=== PATIENT | male | born 1980 | race Caucasian/White ===

== ENCOUNTER 2016-07-02 15:23 | Emergency (ER) | payer BC, OTHER ==
[~2016-07-02] VITALS: Ht 198.1 cm; Wt 108.9 kg
[~2016-07-02 15:23] MED LIST: ADVIL,MOTRIN,R200 MG PO; AMOXIL500 M1 PO; ANTIVERT25 MG PO; AUGMENTIN 875-875 MG PO; B-1100 MG PO; BACTRIM DS 8001 TA1 PO; CATAPRES0.1 MG PO; CEPHALEXIN500 M1 PO; CLARITIN-D 10 M1 T21 PO; CLARITIN-D 12 H1 TAB PO; CLARITIN10 MG PO; CORTISPORIN SUS10 ML OT; DAYPRO600 M1 PO; FLEXERIL10 MG PO; HYDROCODONE BIT1 T11 PO; KEFLEX500 MG PO; LIDEX 0.05% CRE15 GM T; LISINOPRIL-HYDR1 TA1 PO; MEDROL DOSEPAK4 MG PO; MOTRIN800 MG PO; Motrin,Rufen800 MG PO; NAPROSYN500 MG PO; NATURE'S BLEND F1 MG PO; PREDNICOT20 MG PO; PREDNISONE10 MG PO; PREDNISONE20 M1 PO; ROBITUSSIN DM 105 ML PO; SKELAXIN800 MG PO; SUBOXONE 8 MG-21 TA2 SL; THERAGRAN1 TA2 PO; TRAMADOL HCL50 MG PO; VENTOLIN H0.09 MG/AC INH; VIBRAMYCIN100 MG PO; VICODIN 500 MG-1 TAB PO; VISTARIL25 M1 PO; VITAMIN D50000 I3 PO; XANAX0.25 MG PO; XANAX0.5 MG PO; XANAX1 MG PO
[2016-07-02] MEDS ORDERED: VISTARIL25 MG PO (15:41)
[2016-07-02] MEDS ORDERED: NAPROSYN500 MG PO (15:41)
== END 2016-07-02 16:29 | disposition home or self-care (01) ==
LOC: ED 15:23
DX: M25.511 Pain in right shoulder (principal); R03.0 Elevated blood-pressure reading, without diagnosis of hypertension; F41.9 Anxiety disorder, unspecified; Z79.899 Other long term (current) drug therapy

== ENCOUNTER 2016-09-23 14:48 | Emergency (ER) | payer BC, OTHER ==
[~2016-09-23] VITALS: Ht 198.1 cm; Wt 108.9 kg
[~2016-09-23 14:48] MED LIST changes: +VISTARIL25 MG PO
[2016-09-23 15:50] LABS: BASO # 0.1 10*3/uL (0.0-0.1); BASO % 0.7 % (0.0-1.0); EOS # 0.6 10*3/uL (0.0-0.4); EOS % 9.3 % (1.0-4.0); HEMATOCRIT 41.6 % (42.0-52.0); HEMOGLOBIN 14.4 g/dl (14.0-18.0); LYMPH % 28.8 % (27.0-41.0); MEAN CORPUSCULAR HGB 31.5 pg (27.0-31.0); MEAN CORPUSCULAR HGB CONC 34.6 g/dl (33.0-37.0); MEAN PLATELET VOLUME 10.1 fl (9.6-12.3); MONO # 0.5 10*3/uL (0.1-1.0); MONO % 7.8 % (3.0-9.0); NEUT # 3.6 10*3/uL (2.3-7.9); NEUT % 53.3 % (47.0-73.0); PLATELET COUNT AUTOMATED 288 10*3/uL (130-400); RED BLOOD COUNT 4.57 10*6/uL (4.50-5.90); RED CELL DISTRI WIDTH 12.1 % (0-14.5); WHITE BLOOD COUNT 6.8 10*3/uL (4.8-10.8)
[2016-09-23 16:06] LABS: ALBUMIN 4.6 gm/dl (3.1-4.5); ALKALINE PHOSPHATASE 70 U/L (45-117); BILIRUBIN, TOTAL 0.8 mg/dl (0.2-1.0); BUN 20 mg/dl (7-24); CARBON DIOXIDE 30 mmol/L (21-32); CHLORIDE 97 mmol/L (98-107); EST GLOM FILT AFRICAN AMERICAN > 60 ml/min; GLUCOSE 102 mg/dL (65-99); SGOT/AST 28 IU/L (3-35); SGPT/ALT 28 U/L (12-78); SODIUM 137 mmol/L (136-145); TOTAL PROTEIN 8.1 gm/dL (6.4-8.2)
[2016-09-23] MEDS ORDERED: ZOFRAN ODT4 MG SL (16:31)
[2016-09-23] MEDS ORDERED: DOXYCYCLINE100 M3 PO (16:31)
[2016-09-23] MEDS ORDERED: TOPCARE OMEPRAZ20 MG PO (16:31)
== END 2016-09-23 17:00 | disposition home or self-care (01) ==
LOC: ED 14:48
PROVIDERS: Registered Nurse
DX: S20.361A Insect bite (nonvenomous) of right front wall of thorax, initial encounter (principal); K21.9 Gastro-esophageal reflux disease without esophagitis; I10 Essential (primary) hypertension; Z79.899 Other long term (current) drug therapy; W57.XXXA Bitten or stung by nonvenomous insect and other nonvenomous arthropods, initial encounter; Y93.9 Activity, unspecified; Y92.9 Unspecified place or not applicable; Y99.9 Unspecified external cause status

== ENCOUNTER 2017-01-11 13:55 | Emergency (ER) | payer BC, OTHER ==
[~2017-01-11] VITALS: Ht 198.1 cm; Wt 108.9 kg
[~2017-01-11 13:55] MED LIST changes: +DOXYCYCLINE100 M3 PO; +TOPCARE OMEPRAZ20 MG PO; +ZOFRAN ODT4 MG SL
[2017-01-11 14:46] LABS: BASO % 0.3 % (0.0-1.0); EOS % 0.7 % (1.0-4.0); HEMATOCRIT 42.5 % (42.0-52.0); HEMOGLOBIN 14.4 g/dl (14.0-18.0); LYMPH # 1.1 10*3/uL (1.3-4.4); LYMPH % 18.3 % (27.0-41.0); MEAN CELL VOLUME 91.4 fl (80.0-94.0); MEAN CORPUSCULAR HGB CONC 33.9 g/dl (33.0-37.0); MEAN PLATELET VOLUME 10.2 fl (9.6-12.3); MONO # 0.3 10*3/uL (0.1-1.0); MONO % 5.9 % (3.0-9.0); NEUT # 4.3 10*3/uL (2.3-7.9); NEUT % 74.6 % (47.0-73.0); PLATELET COUNT AUTOMATED 282 10*3/uL (130-400); RED BLOOD COUNT 4.65 10*6/uL (4.50-5.90); RED CELL DISTRI WIDTH 12.2 % (0-14.5); WHITE BLOOD COUNT 5.8 10*3/uL (4.8-10.8)
[2017-01-11 15:02] LABS: ALBUMIN 4.5 gm/dl (3.1-4.5); ALKALINE PHOSPHATASE 70 U/L (45-117); BUN 17 mg/dl (7-24); CHLORIDE 96 mmol/L (98-107); POTASSIUM 4.2 mmol/L (3.5-5.1); SGOT/AST 24 IU/L (3-35); SGPT/ALT 26 U/L (12-78); SODIUM 136 mmol/L (136-145); TOTAL PROTEIN 7.9 gm/dL (6.4-8.2)
[2017-01-11] MEDS ORDERED: AMOXICILLIN500 M2 PO (15:27)
[2017-01-11] MEDS ORDERED: ZOFRAN ODT4 MG SL (15:27)
== END 2017-01-11 15:58 | disposition home or self-care (01) ==
LOC: ED 13:55
PROVIDERS: Nurse Practitioner Family
DX: F41.9 Anxiety disorder, unspecified (principal); K08.89 Other specified disorders of teeth and supporting structures; B34.9 Viral infection, unspecified; Z79.899 Other long term (current) drug therapy

== ENCOUNTER 2018-01-30 14:51 | Emergency (ER) | payer BC ==
[~2018-01-30] VITALS: Ht 198.1 cm; Wt 108.9 kg
[~2018-01-30 14:51] MED LIST changes: +AMOXICILLIN500 M2 PO
[2018-01-30] MEDS ORDERED: PROVENTIL HFA6.7 GM INH (16:52)
[2018-01-30] MEDS ORDERED: PREDNISONE20 M1 PO (16:52)
[2018-01-30] MEDS ORDERED: TESSALON PERLE100 M1 PO (16:52)
== END 2018-01-30 17:11 | disposition home or self-care (01) ==
LOC: ED 14:51
DX: J40 Bronchitis, not specified as acute or chronic (principal); Z79.899 Other long term (current) drug therapy

== ENCOUNTER 2018-02-19 11:06 | Emergency (ER) | payer BC ==
[~2018-02-19] VITALS: Ht 198.1 cm; Wt 108.9 kg
[~2018-02-19 11:06] MED LIST changes: +PROVENTIL HFA6.7 GM INH; +TESSALON PERLE100 M1 PO
[2018-02-19] MEDS ORDERED: PREDNISOLON5 MG/5 ML PO (13:35)
[2018-02-19] MEDS ORDERED: VIBRAMYCIN100 MG PO (13:42)
== END 2018-02-19 14:08 | disposition home or self-care (01) ==
LOC: ED 11:06
DX: J40 Bronchitis, not specified as acute or chronic (principal); K21.9 Gastro-esophageal reflux disease without esophagitis; I10 Essential (primary) hypertension; Z79.899 Other long term (current) drug therapy

== ENCOUNTER 2018-03-28 09:45 | Emergency (ER) | payer BC ==
[~2018-03-28] VITALS: Ht 198.1 cm; Wt 108.9 kg
[~2018-03-28 09:45] MED LIST changes: +PREDNISOLON5 MG/5 ML PO
[2018-03-28 10:52] LABS: HEMATOCRIT 43.8 % (42.0-52.0); HEMOGLOBIN 14.7 g/dl (14.0-18.0); MEAN CELL VOLUME 94.4 fl (80.0-94.0); MEAN CORPUSCULAR HGB 31.7 pg (27.0-31.0); MEAN CORPUSCULAR HGB CONC 33.6 g/dl (33.0-37.0); MEAN PLATELET VOLUME 10.3 fl (9.6-12.3); PLATELET COUNT AUTOMATED 291 10*3/uL (130-400); RED BLOOD COUNT 4.64 10*6/uL (4.50-5.90); RED CELL DISTRI WIDTH 12.2 % (0-14.5); WHITE BLOOD COUNT 8.2 10*3/uL (4.8-10.8)
[2018-03-28 11:08] LABS: ALBUMIN 4.4 gm/dl (3.1-4.5); ALKALINE PHOSPHATASE 66 U/L (45-117); BUN 18 mg/dl (7-24); CHLORIDE 103 mmol/L (98-107); CREATININE 1.15 mg/dL (0.70-1.30); POTASSIUM 4.8 mmol/L (3.5-5.1); SGOT/AST 22 IU/L (3-35); SGPT/ALT 24 U/L (12-78); SODIUM 139 mmol/L (136-145); TOTAL PROTEIN 7.4 gm/dL (6.4-8.2)
[2018-03-28 11:15] LABS: BASOPHILS 1 % (0-1); PLATELET SUFFICIENCY NORMAL (NORMAL); TOTAL CELLS COUNTED 100 #CELLS
[2018-03-28] MEDS ORDERED: FLONASE ALLERG9.9 ML NAS ×2 (14:54→15:10)
[2018-03-28] MEDS ORDERED: LEVOFLOXACIN500 MG PO ×2 (14:54→15:10)
[2018-03-28] MEDS ORDERED: PREDNISONE10 MG PO ×2 (14:54→15:10)
== END 2018-03-28 14:57 | disposition home or self-care (01) ==
LOC: ED 09:45
PROVIDERS: Nurse Practitioner Family
DX: J20.9 Acute bronchitis, unspecified (principal); J01.90 Acute sinusitis, unspecified; Z88.8 Allergy status to other drugs, medicaments and biological substances; Z79.899 Other long term (current) drug therapy; Z79.2 Long term (current) use of antibiotics

== ENCOUNTER 2018-08-22 13:29 | Emergency (ER) | payer SELFPAY ==
[~2018-08-22] VITALS: Wt 104.3 kg
[~2018-08-22 13:29] MED LIST changes: +COMBIVENT RESPIM4 GM INH; +FLONASE ALLERG9.9 ML NAS; +LEVAQUIN750 M1 PO; +LEVOFLOXACIN500 MG PO; +PREDNISONE50 MG PO
[2018-08-22] MEDS ORDERED: PROVENTIL HFA6.7 GM INH (14:27)
[2018-08-22] MEDS ORDERED: VENTOLIN 02.5 MG/3 M INH (14:27)
[2018-08-22] MEDS ORDERED: PREDNISONE10 MG PO (14:27)
[2018-08-22] MEDS ORDERED: FLOVENT HFA10.6 GM INH (15:02)
[2018-09-25] MEDS ORDERED: ZESTORETIC 20-1 EACH PO (16:39)
[2018-09-27] MEDS ORDERED: MUCINEX ER600 MG PO (10:58)
[2018-09-27] MEDS ORDERED: DOXYCYCLINE100 M3 PO (10:58)
[2018-09-27] MEDS ORDERED: FLONASE ALLERG9.9 ML NAS (10:58)
[2018-09-27] MEDS ORDERED: PREDNISONE10 MG PO (10:58)
[2018-09-27] MEDS ORDERED: PROVENTIL HFA6.7 GM INH (10:58)
== END 2018-08-22 15:00 | disposition home or self-care (01) ==
LOC: ED 13:29
DX: J45.909 Unspecified asthma, uncomplicated (principal); K21.9 Gastro-esophageal reflux disease without esophagitis; Z88.8 Allergy status to other drugs, medicaments and biological substances

== ENCOUNTER 2018-09-21 18:42 | Emergency (ER) | payer SELFPAY ==
[~2018-09-21] VITALS: Ht 198.1 cm; Wt 106.6 kg
[~2018-09-21 18:42] MED LIST changes: +FLOVENT HFA10.6 GM INH; +VENTOLIN 02.5 MG/3 M INH
[2018-09-21 19:52] LABS: HEMATOCRIT 36.6 % (42.0-52.0); HEMOGLOBIN 12.1 g/dl (14.0-18.0); MEAN CELL VOLUME 95.3 fl (80.0-94.0); MEAN CORPUSCULAR HGB 31.5 pg (27.0-31.0); MEAN CORPUSCULAR HGB CONC 33.1 g/dl (33.0-37.0); MEAN PLATELET VOLUME 10.3 fl (9.6-12.3); PLATELET COUNT AUTOMATED 254 10*3/uL (130-400); RED BLOOD COUNT 3.84 10*6/uL (4.50-5.90); RED CELL DISTRI WIDTH 12.4 % (0-14.5); WHITE BLOOD COUNT 10.8 10*3/uL (4.8-10.8)
[2018-09-21 20:07] LABS: ALBUMIN 4.2 gm/dl (3.1-4.5); ALKALINE PHOSPHATASE 82 U/L (45-117); BUN 13 mg/dl (7-24); CHLORIDE 102 mmol/L (98-107); CREATININE 1.16 mg/dL (0.70-1.30); POTASSIUM 3.5 mmol/L (3.5-5.1); SGOT/AST 35 IU/L (3-35); SGPT/ALT 30 U/L (12-78); SODIUM 138 mmol/L (136-145); TOTAL PROTEIN 7.1 gm/dL (6.4-8.2)
[2018-09-21 20:21] LABS: BASOPHILS 1 % (0-1); PLATELET SUFFICIENCY NORMAL (NORMAL); TOTAL CELLS COUNTED 100 #CELLS
[2018-09-21] MEDS ORDERED: ZITHROMAX250 MG PO (21:26)
[2018-09-21] MEDS ORDERED: PREDNISONE10 MG PO (21:26)
[2018-09-25] MEDS ORDERED: ZESTORETIC 20-1 EACH PO (16:39)
[2018-09-27] MEDS ORDERED: PROVENTIL HFA6.7 GM INH (10:58)
[2018-09-27] MEDS ORDERED: DOXYCYCLINE100 M3 PO (10:58)
[2018-09-27] MEDS ORDERED: MUCINEX ER600 MG PO (10:58)
[2018-09-27] MEDS ORDERED: FLONASE ALLERG9.9 ML NAS (10:58)
[2018-09-27] MEDS ORDERED: PREDNISONE10 MG PO (10:58)
== END 2018-09-21 21:28 | disposition home or self-care (01) ==
LOC: ED 18:42
PROVIDERS: Physician Assistant
DX: J45.909 Unspecified asthma, uncomplicated (principal); R42 Dizziness and giddiness; Z88.8 Allergy status to other drugs, medicaments and biological substances; Z79.899 Other long term (current) drug therapy; Z79.2 Long term (current) use of antibiotics

== ENCOUNTER 2019-01-04 19:10 | Inpatient (IN) | payer BC ==
[~2019-01-04] VITALS: Ht 198.1 cm; Wt 96.2 kg
--- NOTE | ~2019-01-04 | PROC NOTE ---
[place], [place] PROCEDURE NOTE [id number] UN[facility] #: [id number] ROOM: 502 DOCTOR: SYD UP MD,ALICJA BIRTHDATE: [birth year] DOS: 01/06/2019 PROCEDURE: Fiberoptic bronchoscopy. PREOPERATIVE DIAGNOSIS: The patient is with ground glass opacity mainly in the upper lungs, greater on the left than the right upper lobe. POSTOPERATIVE DIAGNOSES: The patient is the same and a small amount of secretion present in endobronchial tree, which was also checked an outpatient and bronchial wash from the endobronchial subsegments. BAL specimen was obtained from the left upper lobe as well. COMPLICATIONS: None. ANESTHESIA: Procedure completed under general anesthesia. PROCEDURE DESCRIPTION: The patient was brought to the OR and placed in supine position. Conscious sedation administered by the Anesthesia Department. After achieving proper sedation, airway introduced into the mouth. Bronchoscope advanced to airway into the laryngeal area. Epiglottis and vocal cords were seen as the patient has LMA used for the general anesthesia administration. The bronchoscope was advanced to the vocal cord, moving symmetric movements and in the tracheal lumen noted small amount of mucopurulent secretions suctioned out to the janis level. The secretion present in the main proximal bronchi right and the left main stem bronchi as well. Secretions suctioned out. The secretion was collected from the endobronchial subsegments bilaterally, sent for cultures. BAL specimen was obtained from the left upper lobe, sent for cell differential as well as for the cultures as well and cytology. Procedure well tolerated without any complications. No complications noted after the procedure. ALICJA VELARDE MD CM:PROCNOTE:PROCEDURE NOTE [id number] ALICJA UP MD
--- NOTE | ~2019-01-04 | CON ---
[place], [place] REPORT OF CONSULTATION NAME: OPAL MCMANUS [facility] #: [id number] UNIT #: [id number] ROOM: 502 DOCTOR: ALICJA CASE MD BIRTHDATE: [birth year] DOS: 01/05/2019 PULMONARY CONSULTATION, EVALUATION AND MANAGEMENT REASON FOR CONSULTATION: For assessment of the acute pneumonia and other ongoing respiratory symptoms. HISTORY OF PRESENT ILLNESS: This is a 38-year-old white male patient who was admitted to the hospital under hospitalist service on 01/05/2019. The patient has been assessed in the Emergency Room with ongoing symptom of productive cough intermittently for 3 weeks. The symptoms of shortness of breath have been also noted worsened. The patient has been treated with corticosteroids as tapering steroids as well as amoxicillin. The patient stated symptoms have not worsened. He has a toenail infection that seems to be better taking amoxicillin, but not reported any improvement in respiratory symptom. He came into the hospital has a CT scan of the chest done and that shows pneumonia, requiring hospitalization. The patient has been currently reported symptoms of cough, which were noted essentially without any sputum expectoration. He denies symptoms of chest pain. REVIEW OF SYSTEMS: CONSTITUTIONAL SYMPTOMS: Fatigue and tiredness noted without any symptoms of fever or chills. EYES: Denies any burning, redness, or tenderness. EARS, NOSE, THROAT SYMPTOMS: Denies sore throat, hoarseness, otalgia, postnasal drainage or epistaxis. CARDIOVASCULAR: Denies angina pain, edema, or pain of the lower extremities. GASTROINTESTINAL: Denies dysphagia, nausea, vomiting, diarrhea, abdominal pain, hematemesis, melena, or hematochezia. SKIN: Denies abnormal lesions or rashes. CENTRAL NERVOUS SYSTEM: The patient denies dizziness, headache, diplopia, or syncopal episodes. Remaining systems were reviewed, they were noted all negative. PAST MEDICAL HISTORY: Known to me during his last hospitalization was treated on 09/27/2018, at that time was noted with acute tracheobronchitis. There has not been any pneumonia noted at that time with my assessment. The patient does not have any other abnormalities. The patient had been treated except essential hypertension. SOCIAL HISTORY: The patient lives at home. Denies any history of tobacco, alcohol or illicit drug use. 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 He is single and has 2 children. PAST SURGICAL HISTORY: None. FAMILY HISTORY: The patient's father at age of 43 years with complication of alcoholic liver cirrhosis. Mother at age 42 years with complication of leukemia. [place], [place] REPORT OF CONSULTATION NAME: OPAL MCMANUS UNIT #: [id number] ROOM: 502 DOCTOR: ALICJA CASE MD BIRTHDATE: [birth year] CURRENT MEDICATIONS: Administered were noted as hydrochlorothiazide, lisinopril, Flonase, Mucinex, loratadine, Solu-Medrol 40 mg q.8. hours, DuoNeb q. 4 hours, intravenous Levaquin, vancomycin and Zosyn. DRUG ALLERGIES: Noted as ROBITUSSIN causing anxiety. PHYSICAL EXAMINATION: GENERAL: A 38-year-old male patient who has been noted currently awake and alert without any distress. Height of 6 feet 6 inches, weight of 212 pounds, BMI 24. VITAL SIGNS: Normal temperature, respiratory rate 17-20, heart rate of 92-84, blood pressure 129/65-130/95. Pulse ox saturation on room air. GENERAL: Noted 90-97% saturation recorded. HEENT: Shows head was atraumatic. Eyes nonicterus. NECK: Supple. CARDIOVASCULAR: S1, S2 is audible. LUNGS: Noted with decreased breath sounds with expiratory wheezing, no crackles. ABDOMEN: Soft, flat, and nontender. Bowel sounds present. EXTREMITIES: Noted without any acute edema. MUSCULOSKELETAL: Without any acute deformities. CENTRAL NERVOUS SYSTEM: Cranial nerves 2-12 intact. LABORATORY DATA: CBC that was done yesterday, WBC count 8.5, hemoglobin 13.6, platelet count normal, 17.8% eosinophils. CMP that was done on 01/04/2019, noted BUN 26, creatinine was normal. Sodium of 135. CBC that was done on 01/05/2019, WBC count 5.7, hemoglobin 12.9, platelet counts were normal. CMP with normal BUN and creatinine. Chest x-ray that was done on the current admission review was noted without any acute visible pulmonary infiltration. CT scan of the chest that was done on 01/04/2019 was reviewed in detail personally from the PACS images. It shows patchy area and ground glass opacity noted in the upper lung bilaterally of different areas. The mid and lower portion of the lung noted clear of any acute infiltration. IMPRESSION: The patient who has been currently admitted to the hospital appeared to have acute exacerbation of bronchial asthma, severe eosinophilia, recurrent patchy infiltration. Differential diagnoses would be considered as noninfectious etiology of current pulmonary infiltration as acute hypersensitivity pneumonitis with other differential to be considered bronchopulmonary allergic mycosis. The patient does work in the environment was exposed to the dust in damp environment possibility of mold inhalation cannot be completely excluded. PLAN OF MANAGEMENT: The patient has been already getting corticosteroids that will be continued on current dose. Workup to be completed for the bronchopulmonary aspergillosis, mycosis. He will be needing IgE level as well as IgE patient with Aspergillus species as well. Bronchodilators to be continued. Consider doing a bronchoscopy as well and the BAL specimen to exclude as other causes. Current ground glass opacities of the lung and also to [place], [place] REPORT OF CONSULTATION NAME: MARIETTAOPAL Tsering UNIT #: [id number] ROOM: [facility] DOCTOR: ALICJA CASE MD BIRTHDATE: [birth year] exclude bacterial infection. Continue empirical use of the antibiotic at this time certainly would not require any broad spectrum intravenous antibiotics until confirmation of a bacterial infection would occur. Also ordered for the nasal washing for the viral assessment. Thanks for allowing me to participate in the care of this patient. ALICJA VELARDE MD CM:CONSTR:REPORT OF CONSULTATION 1540 01/25/19 0942 interface
--- NOTE | ~2019-01-04 | PR ---
[place], [place] PROGRESS NOTE NAME: OPAL MCMANUS UNIT #: [id number] ROOM: 502 DOCTOR: ALICJA CASE MD BIRTHDATE: [birth year] DOS: 01/07/2019 SUBJECTIVE: He has a bronchoscopy done yesterday successfully without any difficulty or problem noted with continued reduction and improvement in the symptoms of wheezing and others. Denies symptoms of fever, chills or hemoptysis. OBJECTIVE: VITAL SIGNS: Normal temperature, respiratory rate 18, heart rate 98, blood pressure 115/55 were recorded. Pulse oxygen saturation recorded at rest on room air 96% saturation. HEENT: Head was atraumatic. Eyes nonicterus. NECK: Supple. CARDIOVASCULAR: S1, S2 is audible. LUNGS: No wheeze or crackles today. ABDOMEN: Soft, nontender. Bowel sounds present. EXTREMITIES: No new change. LABORATORY DATA: Culture bronchial washing noted normal emil preliminary, final culture results were pending. The BAL specimen that was done 01/06/2019 noted predominance of eosinophils at 54%. The cultures of the BAL and bronchial washing showing normal emil preliminary. 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 The possible consideration of the current problems resulting from his work exposure and inhalation to mold or other fungal infection resulting in allergic pulmonary disease could be considered very likely. PLAN OF TREATMENT: The patient could be discharged on prednisone 40 mg daily. Outpatient followup set up in a week before discharge ____ with only use a respirator. Other therapy, plan of management. Additional treatment changes will be done based on available other results and the tests, which has been sent during this hospitalization. In addition, workup to be done accordingly. [place], [place] PROGRESS NOTE NAME: OPAL MCMANUS UNIT #: [id number] ROOM: 502 DOCTOR: ALICJA CASE MD BIRTHDATE: [birth year] ALICJA VELARDE MD CM:PNTRANS [id number] ALICJA UP MD 01/07/191941 interface
--- NOTE | ~2019-01-04 | PR ---
[place], [place] PROGRESS NOTE NAME: OPAL MCMANUS [facility] #: [id number] UNIT #: [id number] ROOM: 502 DOCTOR: SYD UP MD,ALICJA BIRTHDATE: [birth year] DOS: 01/06/2019 PULMONARY PROGRESS NOTE SUBJECTIVE: Reduction of the wheezing was noted. He was continued on corticosteroids and bronchodilators. Workup for the allergic bronchopulmonary mycosis was ordered. He has been also planned for bronchoscopy to be done today. BAL specimen will be obtained in reference to the left upper lobe as well for further assessment. Not been reported any symptoms of fever or chills. Denies symptoms of headache or diplopia, nausea, vomiting, diarrhea, abdominal pain, hematemesis, melena, or hematochezia. The patient denies symptoms of fever or chills current symptom. N.p.o. past midnight status was achieved for bronchoscopy that will be done today. Remaining systems were reviewed. They were noted all negative. OBJECTIVE: VITAL SIGNS: Normal temperature, respiratory rate 12, heart rate of 92, blood pressure of 169/93. Pulse oxygen saturation on room air 99% saturation recorded at rest. HEENT: Examination shows head was atraumatic. Eyes nonicterus. NECK: Supple. CARDIOVASCULAR: S1, S2 audible. LUNGS: Noted without any crackles. Mild expiratory wheezing, moderate decreased breath sounds bilaterally. ABDOMEN: Soft, nontender. Bowel sounds present. EXTREMITIES: No new change. LABORATORY DATA: BMP this morning noted normal BUN and creatinine. CBC this morning, WBC count 14.4, hemoglobin 13, hematocrit 40.3, and platelet count of 302,000. IMPRESSION: Ground glass opacities noted, which has been present mostly in the upper lungs, predominantly in the left upper than the right upper lobe. The various differentials has been considered including hypersensitivity pneumonitis, bacterial or viral infection and also allergic bronchopulmonary mycosis. PLAN OF MANAGEMENT: Continue current plan of management at this time. Monitor workup, which was ordered. The bronchoscopy will done today. Culture will be taken. BAL specimen as well for interstitial lung disease. Assessment and current ground glass opacities. Less likely to be a malignant process at this time. Any changes in the treatment necessary will be ordered after the bronchoscopy. [place], [place] PROGRESS NOTE NAME: OPAL MCMANUS [place] UNIT #: [id number] ROOM: 502 DOCTOR: SYD UP MD,ALICJA BIRTHDATE: [birth year] ALICJA VELARDE MD CM:GINO [id number] ALICJA UP MD 01/07/19 0024 interface
[~2019-01-04 19:10] MED LIST changes: +MUCINEX ER600 MG PO; +ZESTORETIC 20-1 EACH PO; +ZITHROMAX250 MG PO
[2019-01-04 19:15] VITALS: BP 123/78
[2019-01-04 19:50] LABS: BASO # 0.1 10*3/uL (0.0-0.1); BASO % 0.7 % (0.0-1.0); EOS # 1.5 10*3/uL (0.0-0.4); EOS % 17.8 % (1.0-4.0); HEMATOCRIT 41.7 % (42.0-52.0); HEMOGLOBIN 13.6 g/dl (14.0-18.0); LYMPH # 1.7 10*3/uL (1.3-4.4); LYMPH % 20.5 % (27.0-41.0); MEAN CELL VOLUME 95.9 fl (80.0-94.0); MEAN CORPUSCULAR HGB 31.3 pg (27.0-31.0); MEAN CORPUSCULAR HGB CONC 32.6 g/dl (33.0-37.0); MEAN PLATELET VOLUME 10.3 fl (9.6-12.3); MONO # 0.6 10*3/uL (0.1-1.0); MONO % 7.3 % (3.0-9.0); NEUT # 4.5 10*3/uL (2.3-7.9); NEUT % 53.5 % (47.0-73.0); PLATELET COUNT AUTOMATED 322 10*3/uL (130-400); RED BLOOD COUNT 4.35 10*6/uL (4.50-5.90); RED CELL DISTRI WIDTH 12.8 % (0-14.5); WHITE BLOOD COUNT 8.5 10*3/uL (4.8-10.8)
--- NOTE | 2019-01-04 19:58 | NUR ---
RESPIRATORY CALLED FOR BREATHING TX PER EMAR.
[2019-01-04 20:06] LABS: ALBUMIN 4.3 gm/dl (3.1-4.5); ALKALINE PHOSPHATASE 87 U/L (45-117); BUN 26 mg/dl (7-24); CHLORIDE 99 mmol/L (98-107); CREATININE 1.11 mg/dL (0.70-1.30); POTASSIUM 3.8 mmol/L (3.5-5.1); SGOT/AST 21 IU/L (3-35); SGPT/ALT 22 U/L (12-78); SODIUM 135 mmol/L (136-145); TOTAL PROTEIN 7.9 gm/dL (6.4-8.2)
--- NOTE | 2019-01-04 21:38 | NUR ---
PT OFF UNIT TO CT VIA W/C.
--- NOTE | 2019-01-04 21:45 | NUR ---
PT RETURNED TO ROOM FROM CT VIA W/C.
[2019-01-04 23:14] VITALS: BP 121/65
--- NOTE | 2019-01-05 00:23 | NUR ---
RESIDENT AT BEDSIDE.INFUSION OF LEVAQUIN ON HOLD UNTIL BLOOD CULTURES DRAWN.
--- NOTE | 2019-01-05 00:50 | NUR ---
INFUSION OF LEVAQUIN INTITIATED.
--- NOTE | 2019-01-05 01:22 | NUR ---
A 38, admitted to 5E, under the services of JESSIE Storey DO with a diagnosis of REACTIVE AIRWAY DISEASE. RECURRENT PNEUMONIA. Chief complaint is SOB. Patient arrived via wheel chair from ER. Monitor applied. Initial assessment completed. Vital signs taken and recorded. JESSIE STOREY DO notified of admission to the unit. Orders received. See assessment for past medical history, medications and allergies. Patient and/or family oriented to unit. [address] visitation policy reviewed. Clothing/patient valuable form completed. MELISSA PRATT
--- NOTE | 2019-01-05 01:57 | NUR ---
PT MEDICATED WITH PRN TYLENOL FOR C/O HEADACHE RATED A 7/10. WILL MONITOR FOR EFFECTIVENESS.
--- NOTE | 2019-01-05 02:33 | NUR ---
PT APPEARS TO BE RESTING COMFORTABLY AT THIS TIME. PRN TYLENOL EFFECTIVE.
[2019-01-05 06:50] LABS: BASO % 0.2 % (0.0-1.0); EOS % 0.4 % (1.0-4.0); HEMATOCRIT 39.3 % (42.0-52.0); HEMOGLOBIN 12.9 g/dl (14.0-18.0); LYMPH # 0.7 10*3/uL (1.3-4.4); LYMPH % 11.8 % (27.0-41.0); MEAN CELL VOLUME 94.7 fl (80.0-94.0); MEAN CORPUSCULAR HGB 31.1 pg (27.0-31.0); MEAN CORPUSCULAR HGB CONC 32.8 g/dl (33.0-37.0); MONO # 0.1 10*3/uL (0.1-1.0); MONO % 1.1 % (3.0-9.0); NEUT # 4.9 10*3/uL (2.3-7.9); NEUT % 86.3 % (47.0-73.0); PLATELET COUNT AUTOMATED 296 10*3/uL (130-400); RED BLOOD COUNT 4.15 10*6/uL (4.50-5.90); RED CELL DISTRI WIDTH 12.8 % (0-14.5); WHITE BLOOD COUNT 5.7 10*3/uL (4.8-10.8)
[2019-01-05 07:19] LABS: BUN 20 mg/dl (7-24); CHLORIDE 104 mmol/L (98-107); POTASSIUM 3.9 mmol/L (3.5-5.1); SODIUM 137 mmol/L (136-145)
[2019-01-05 07:31] LABS: CREATININE 1.05 mg/dL (0.70-1.30); FREE T4 0.89 ng/dl (0.76-1.46); THYROID STIM HORMONE (HS) 0.226 uIU/ml (0.358-4.75)
--- NOTE | 2019-01-05 07:40 | NUR ---
RESTING IN BED. RESP-EASY AND REGULAR. NO C/O AT THIS TIME. CALL LIGHT IN REACH. SEE SHIFT ASSESSMENT.
[2019-01-05 08:00] VITALS: BP 138/95
[2019-01-05 08:05] LABS: VITAMIN D, 25-HYDROXY 30.7 ng/mL (30-100)
--- NOTE | 2019-01-05 09:51 | NUR ---
PT C/O HEADACHE, RATES PAIN 8 ON PAIN SCALE 0-10. MEDICATED WITH TYLENOL PO PER PRN ORDER, SEE EMAR. IV started left forearm with #22 angiocath after 1 attempts. The IV site was prepped with Chloraprep. Heparin lock attached. Sterile dressing applied. Patient tolerated precedure well. Procedure performed according to [facility] policy & procedure. SERGIO JOINER
--- NOTE | 2019-01-05 10:45 | NUR ---
PT STATES PAIN MEDICATION WAS EFFECTIVE. CALL LIGHT IN REACH.
--- NOTE | 2019-01-05 11:33 | NUR ---
[employer] spoke with Laura in [employer]. She stated she has spoken with the patient and his insurance card is in his car. He is agreeable to provide her with it when able. -MARA Hansen
[2019-01-05 12:00] VITALS: BP 129/65
--- NOTE | 2019-01-05 12:47 | NUR ---
SPEECH PATHOLOGY Nursing screen completed. Services do not appear warranted however this dept. will be available should future needs arise. HILDA THOMAS MS [facility]-CLAIMS DIRECTOR
--- NOTE | 2019-01-05 14:00 | NUR ---
TOLERATED ROUTINE IV MEDICATION. NO C/0 AT THIS TIME. CALL LIGHT IN REACH.
--- NOTE | 2019-01-05 15:44 | NUR ---
DR. VELARDE CALLED FOR BRONCH TOMORROW IF PT WANTS.
--- NOTE | 2019-01-05 15:45 | NUR ---
CALLED DR. BARRIGA REGARDING PT ANXIOUS AND REQUESTING SOMETHING FOR HIS NERVES. MADE AWARE PT IS HAVING A BRONCH TOMORROW
[2019-01-05 16:00] VITALS: BP 134/72
--- NOTE | 2019-01-05 16:00 | NUR ---
PT RESTING IN BED. RESP-EASY AND REGULAR. NO C/O AT THIS TIME. CALL LIGHT IN REACH. SEE SHIFT ASSESSMENT,.
--- NOTE | 2019-01-05 18:30 | NUR ---
PT MEDICATED WITH VISTARIL PO FOR ANXIETY, SEE EMAR. CALL LIGHT IN REACH. VISITORS AT HIS SIDE.
--- NOTE | 2019-01-05 18:35 | NUR ---
MEDICATED WITH TYLENOL TWO TAB PO PER PRN ORDER, SEE EMAR. FOR C/O HEADACHE, RATES PAIN 4-5 ON PAIN SCALE 0-10. CALL LIGHT IN REACH.
--- NOTE | 2019-01-05 19:25 | NUR ---
STATES MEDICATION HELPED. CALL LIGHT IN REACH.
[2019-01-05 20:00] VITALS: BP 131/72
--- NOTE | 2019-01-05 21:00 | NUR ---
TOLERATED ROUTINE MED WITH NO PROBLEM. NO C/O AT THIS TIME. CALL LIGHT IN REACH.
[2019-01-06] VITALS (10 sets, daily range): BP systolic 115–169; BP diastolic 60–93
--- NOTE | 2019-01-06 00:06 | NUR ---
RESTING IN BED WITH EYES CLOSED. APPEARS TO BE SLEEPING. HEP LOCK INTACT X'S 2 LA. NPO FOR OR IN AM.
--- NOTE | 2019-01-06 06:05 | NUR ---
REMAINS NPO FOR BRONCH THIS AM. NO C/O'S VOICED. NO RESPIRATORY DISTRESS NOTED.
[2019-01-06 06:16] LABS: BASO % 0.1 % (0.0-1.0); EOS % 0.1 % (1.0-4.0); HEMATOCRIT 40.3 % (42.0-52.0); LYMPH % 7.2 % (27.0-41.0); MEAN CORPUSCULAR HGB CONC 32.3 g/dl (33.0-37.0); MEAN PLATELET VOLUME 11.2 fl (9.6-12.3); MONO # 0.9 10*3/uL (0.1-1.0); MONO % 6.5 % (3.0-9.0); NEUT # 12.3 10*3/uL (2.3-7.9); NEUT % 85.8 % (47.0-73.0); PLATELET COUNT AUTOMATED 302 10*3/uL (130-400); RED CELL DISTRI WIDTH 13.2 % (0-14.5); WHITE BLOOD COUNT 14.4 10*3/uL (4.8-10.8)
[2019-01-06 06:41] LABS: BUN 19 mg/dl (7-24); CHLORIDE 107 mmol/L (98-107); CREATININE 0.93 mg/dL (0.70-1.30); POTASSIUM 4.6 mmol/L (3.5-5.1); SODIUM 141 mmol/L (136-145)
--- NOTE | 2019-01-06 07:36 | NUR ---
Shift chart check completed.
--- NOTE | 2019-01-06 08:00 | NUR ---
PER PT UNABLE TO OBTAIN A SPUTUM. WILL GET ONE DURING BRONCHOSCOPY
--- NOTE | 2019-01-06 10:14 | NUR ---
PT STILL IN SURGERY FOR BRONCH
--- NOTE | 2019-01-06 12:10 | NUR ---
Bid Clerk in to talk to patient. Patient states lives at HOME with FIANCE. There are FEW steps in the home. Physician: Ludin RINCON Pharmacy: [facility] health services: NONE Patient's level of ADLs: INDEPENDENT Patient has working utilities: YES DME: NONE Follow-up physician's appointment after d/c: WILL BE MADE BY HOSPITALIST NURSE DIRECTOR ON DISCHARGE Does patient want to access PORTAL?: NO Discharge plan PT STATES HE LIVES AT HOME WITH HIS FIANCE AND KIDS AND IS INDEPENDENT IN HIS CARE. DENIES THAT HE WILL HAVE ANY NEEDS ON DISCHARGE. WILL RETURN HOME. WILL CONTINUE TO FOLLOW. WILL HAVE A RIDE HOME PER PT.. ANGELO TAYLOR
--- NOTE | 2019-01-06 13:35 | NUR ---
DR BANSAL CALLED WITH REQUEST FOR VISTARIL PRN FOR ANXIETY. 1X DOSE GIVEN ALONG WITH TYLENOL FOR HEADACHE. UP IN ROOM AD CRUZITO - TOOK LIQUIDS WELL
[2019-01-06 13:46] LABS: BF LYMPHOCYTES 5 %; BF MACROPHAGES 28 %; BF MONOCYTES 7 %; BF NEUTROPHILS 5 %
--- NOTE | 2019-01-06 15:01 | NUR ---
SOME IMPROVEMENT SINCE TYLENOL FOR HEADACHE. VISTARIL EFFECTIVE
--- NOTE | 2019-01-06 22:00 | NUR ---
MEDICATED WITH VISTARIL FOR C/O ANXIETY.
[2019-01-07] VITALS: BP 121/52
--- NOTE | 2019-01-07 01:00 | NUR ---
RESTING IN BED WITH EYES CLOSED; VISTARIL GIVEN EARLIER APPARENTLY EFFECTIVE. CALL LIGHT REMAINS WITHIN REACH.
--- NOTE | 2019-01-07 05:45 | NUR ---
PT. STATES HEP LOCK SOMEWHAT SORE. REFUSES TO HAVE IT RESTARTED AT THIS TIME.
[2019-01-07 08:00] VITALS: BP 115/55
[2019-01-07 14:06] LABS: ACID FAST SPEC PROCESSING Concentration (.)
[2019-01-07] MEDS ORDERED: PREDNISONE20 M1 PO (14:11)
--- NOTE | 2019-01-07 15:50 | NUR ---
DISCHARGE INFORMATION EXPLAINED TO PATIENT AT THIS TIME ALL QUESTIONS ANSWERED AT THIS TIME. IV SALINE LOCK DISCONTINUED, DRESSING APPLIED, NO BLEEDING NOTED AT THIS TIME. PATIENT AMBULATED OFF OF FLOOR ON OWN AT THIS TIME.
[2019-01-08 20:02] LABS: ASPERGILLUS FUMIGATU, IGE <0.10 kU/L (Class 0); IMMUNOGLOBULIN IgE 002170 878 IU/mL (6-495)
[2019-02-16 10:07] LABS: ACID FAST CULTURE Negative (.)
== END 2019-01-07 15:50 | disposition home or self-care (01) | DRG 167 ==
LOC: ED 19:10 → EDHOLD 01-05 00:05 → 5E 01-05 00:05
PROVIDERS: Emergency Medicine; Family Medicine; Internal Medicine Critical Care Medicine; Student in an Organized Health Care Education/Training Program; ADMIT Internal Medicine
PROC: 0BC78ZZ Extirpation of Matter from Left Main Bronchus, Via Natural or Artificial Opening Endoscopic (ICD-10-PCS; principal; 2019-01-06)
PROC: 0BC48ZZ Extirpation of Matter from Right Upper Lobe Bronchus, Via Natural or Artificial Opening Endoscopic (ICD-10-PCS; principal; 2019-01-06)
PROC: 0B9G8ZZ Drainage of Left Upper Lung Lobe, Via Natural or Artificial Opening Endoscopic (ICD-10-PCS; principal; 2019-01-06)
PROC: 0BC68ZZ Extirpation of Matter from Right Lower Lobe Bronchus, Via Natural or Artificial Opening Endoscopic (ICD-10-PCS; principal; 2019-01-06)
PROC: 0BC28ZZ Extirpation of Matter from Carina, Via Natural or Artificial Opening Endoscopic (ICD-10-PCS; principal; 2019-01-06)
PROC: 0BC18ZZ Extirpation of Matter from Trachea, Via Natural or Artificial Opening Endoscopic (ICD-10-PCS; principal; 2019-01-06)
PROC: 0BC88ZZ Extirpation of Matter from Left Upper Lobe Bronchus, Via Natural or Artificial Opening Endoscopic (ICD-10-PCS; principal; 2019-01-06)
PROC: 0BCB8ZZ Extirpation of Matter from Left Lower Lobe Bronchus, Via Natural or Artificial Opening Endoscopic (ICD-10-PCS; principal; 2019-01-06)
PROC: 0BC38ZZ Extirpation of Matter from Right Main Bronchus, Via Natural or Artificial Opening Endoscopic (ICD-10-PCS; principal; 2019-01-06)
PROC: 0BC98ZZ Extirpation of Matter from Lingula Bronchus, Via Natural or Artificial Opening Endoscopic (ICD-10-PCS; principal; 2019-01-06)
PROC: 0BC58ZZ Extirpation of Matter from Right Middle Lobe Bronchus, Via Natural or Artificial Opening Endoscopic (ICD-10-PCS; principal; 2019-01-06)
DX: J84.9 Interstitial pulmonary disease, unspecified (principal); B48.8 Other specified mycoses; J45.901 Unspecified asthma with (acute) exacerbation; B44.1 Other pulmonary aspergillosis; E87.1 Hypo-osmolality and hyponatremia; F41.9 Anxiety disorder, unspecified; K21.9 Gastro-esophageal reflux disease without esophagitis; I10 Essential (primary) hypertension; D72.1 Eosinophilia; D53.9 Nutritional anemia, unspecified; R61 Generalized hyperhidrosis; E55.9 Vitamin D deficiency, unspecified; Z88.8 Allergy status to other drugs, medicaments and biological substances; Z79.899 Other long term (current) drug therapy; Z87.01 Personal history of pneumonia (recurrent); Z87.81 Personal history of (healed) traumatic fracture; Z90.89 Acquired absence of other organs; Z83.79 Family history of other diseases of the digestive system; Z80.6 Family history of leukemia

== ENCOUNTER 2019-06-24 23:09 | Emergency (ER) | payer BC ==
[~2019-06-24] VITALS: Ht 187.9 cm; Wt 108.9 kg
[2019-06-25 00:02] LABS: HEMATOCRIT 35.8 % (42.0-52.0); HEMOGLOBIN 11.7 g/dl (14.0-18.0); MEAN CELL VOLUME 92.7 fl (80.0-94.0); MEAN CORPUSCULAR HGB 30.3 pg (27.0-31.0); MEAN CORPUSCULAR HGB CONC 32.7 g/dl (33.0-37.0); MEAN PLATELET VOLUME 10.5 fl (9.6-12.3); PLATELET COUNT AUTOMATED 227 10*3/uL (130-400); RED BLOOD COUNT 3.86 10*6/uL (4.50-5.90); RED CELL DISTRI WIDTH 12.4 % (0-14.5); WHITE BLOOD COUNT 8.5 10*3/uL (4.8-10.8)
[2019-06-25 00:18] LABS: ALKALINE PHOSPHATASE 69 U/L (45-117); BUN 16 mg/dl (7-24); CHLORIDE 100 mmol/L (98-107); CREATININE 1.28 mg/dL (0.70-1.30); POTASSIUM 3.8 mmol/L (3.5-5.1); SGOT/AST 28 IU/L (3-35); SGPT/ALT 30 U/L (12-78); SODIUM 135 mmol/L (136-145); TOTAL PROTEIN 6.6 gm/dL (6.4-8.2)
[2019-06-25 00:30] LABS: BASOPHILS 3 % (0-1); PLATELET SUFFICIENCY NORMAL (NORMAL); TOTAL CELLS COUNTED 100 #CELLS
[2019-06-25] MEDS ORDERED: FLONASE ALLERG9.9 ML NAS (01:21)
[2019-06-25] MEDS ORDERED: AUGMENTIN 875875 MG PO (01:21)
== END 2019-06-25 01:37 | disposition home or self-care (01) ==
LOC: ED 23:09
PROVIDERS: Emergency Medicine Emergency Medical Services
DX: S00.83XA Contusion of other part of head, initial encounter (principal); J32.9 Chronic sinusitis, unspecified; K21.9 Gastro-esophageal reflux disease without esophagitis; I10 Essential (primary) hypertension; F41.9 Anxiety disorder, unspecified; Z88.8 Allergy status to other drugs, medicaments and biological substances; Z79.899 Other long term (current) drug therapy; Y08.89XA Assault by other specified means, initial encounter; Y93.89 Activity, other specified; Y92.89 Other specified places as the place of occurrence of the external cause; Y99.8 Other external cause status

== ENCOUNTER 2019-12-31 11:14 | Emergency (ER) | payer BC ==
[~2019-12-31] VITALS: Ht 198.1 cm; Wt 99.8 kg
[~2019-12-31 11:14] MED LIST changes: +AUGMENTIN 875875 MG PO
[2019-12-31 12:36] LABS: BILIRUBIN NEGATIVE; BLOOD NEGATIVE (NEGATIVE); CLARITY CLEAR (CLEAR); COLOR YELLOW (YELLOW); GLUCOSE NEGATIVE; KETONE NEGATIVE; SPECIFIC GRAVITY 1.025 (1.001-1.030)
[2019-12-31 12:37] LABS: BACTERIA TRACE; EPITHELIAL CELLS 0-2; LEUKO ESTERASE NEGATIVE (NEGATIVE); MUCOUS 1+; NITRITE NEGATIVE (NEGATIVE); RBC 0-2 rbc/hpf (0-2); UROBILINOGEN 0.2 E.U./dl (0.0-1.0); WBC 0-2 wbc/hpf (0-5)
[2019-12-31] MEDS ORDERED: AUGMENTIN 875875 MG PO ×2 (12:48→13:00)
[2019-12-31] MEDS ORDERED: ZYRTEC10 M3 PO ×2 (12:48→13:00)
[2019-12-31] MEDS ORDERED: FLONASE ALLERG9.9 ML NAS ×2 (12:48→13:00)
== END 2019-12-31 13:09 | disposition home or self-care (01) ==
LOC: ED 11:14
PROVIDERS: Nurse Practitioner Family
DX: J01.90 Acute sinusitis, unspecified (principal); R30.0 Dysuria; I10 Essential (primary) hypertension; F41.9 Anxiety disorder, unspecified; Z88.8 Allergy status to other drugs, medicaments and biological substances; Z88.1 Allergy status to other antibiotic agents; Z79.899 Other long term (current) drug therapy; Z90.89 Acquired absence of other organs

== ENCOUNTER 2020-08-30 09:38 | Emergency (ER) | payer BC ==
[~2020-08-30] VITALS: Ht 198.1 cm; Wt 104.3 kg
[~2020-08-30 09:38] MED LIST changes: +ZYRTEC10 M3 PO
[2020-08-30 10:23] LABS: BASO % 0.4 % (0.0-1.0); EOS # 0.3 10*3/uL (0.0-0.4); EOS % 6.1 % (1.0-4.0); HEMATOCRIT 39.3 % (42.0-52.0); LYMPH # 1.4 10*3/uL (1.3-4.4); MEAN CELL VOLUME 92.5 fl (80.0-94.0); MEAN CORPUSCULAR HGB 30.6 pg (27.0-31.0); MEAN CORPUSCULAR HGB CONC 33.1 g/dl (33.0-37.0); MEAN PLATELET VOLUME 10.1 fl (9.6-12.3); MONO # 0.4 10*3/uL (0.1-1.0); MONO % 8.1 % (3.0-9.0); NEUT # 2.5 10*3/uL (2.3-7.9); NEUT % 55.2 % (47.0-73.0); PLATELET COUNT AUTOMATED 253 10*3/uL (130-400); RED BLOOD COUNT 4.25 10*6/uL (4.50-5.90); RED CELL DISTRI WIDTH 12.7 % (0-14.5); WHITE BLOOD COUNT 4.6 10*3/uL (4.8-10.8)
[2020-08-30 10:36] LABS: ALBUMIN 3.9 gm/dl (3.1-4.5); ALKALINE PHOSPHATASE 71 U/L (45-117); BUN 15 mg/dl (7-24); CHLORIDE 107 mmol/L (98-107); CREATININE 1.01 mg/dL (0.70-1.30); POTASSIUM 4.4 mmol/L (3.5-5.1); SGOT/AST 26 IU/L (3-35); SGPT/ALT 30 U/L (12-78); SODIUM 140 mmol/L (136-145); TOTAL PROTEIN 7.1 gm/dL (6.4-8.2)
[2020-08-30] MEDS ORDERED: LEVOFLOXACIN500 MG PO (14:21)
== END 2020-08-30 14:43 | disposition home or self-care (01) ==
LOC: ED 09:38
PROVIDERS: Emergency Medicine
DX: J32.9 Chronic sinusitis, unspecified (principal); I10 Essential (primary) hypertension; F41.9 Anxiety disorder, unspecified; Z88.8 Allergy status to other drugs, medicaments and biological substances; Z79.899 Other long term (current) drug therapy; Z98.890 Other specified postprocedural states

== ENCOUNTER 2020-12-16 15:10 | Emergency (ER) | payer BC ==
[~2020-12-16] VITALS: Wt 102.1 kg
== END 2020-12-16 20:15 | disposition home or self-care (01) ==
LOC: ED 15:10
DX: J32.9 Chronic sinusitis, unspecified (principal); Z88.8 Allergy status to other drugs, medicaments and biological substances; Z79.899 Other long term (current) drug therapy

== ENCOUNTER → 2021-04-07 | Outpatient (CLI) | payer BC | END | disposition home or self-care (01) | LOC: COVID19 16:22 | PROVIDERS: ATTEND Student in an Organized Health Care Education/Training Program | DX: U07.1 COVID-19 (principal) ==

== ENCOUNTER 2021-10-28 18:48 | Emergency (ER) | payer BC ==
[~2021-10-28] VITALS: Ht 198.1 cm; Wt 109.3 kg
[2021-10-28 19:46] LABS: BASO % 0.7 % (0.0-1.0); EOS # 0.3 10*3/uL (0.0-0.4); EOS % 5.4 % (1.0-4.0); HEMATOCRIT 42.8 % (42.0-52.0); LYMPH # 1.7 10*3/uL (1.3-4.4); MEAN CELL VOLUME 90.3 fl (80.0-94.0); MEAN CORPUSCULAR HGB 29.7 pg (27.0-31.0); MEAN CORPUSCULAR HGB CONC 32.9 g/dl (33.0-37.0); MEAN PLATELET VOLUME 10.1 fl (9.6-12.3); MONO # 0.4 10*3/uL (0.1-1.0); NEUT % 54.7 % (47.0-73.0); PLATELET COUNT AUTOMATED 314 10*3/uL (130-400); RED BLOOD COUNT 4.74 10*6/uL (4.50-5.90); RED CELL DISTRI WIDTH 12.1 % (0-14.5); WHITE BLOOD COUNT 5.5 10*3/uL (4.8-10.8)
[2021-10-28 20:02] LABS: ALKALINE PHOSPHATASE 84 U/L (45-117); BUN 17 mg/dl (7-24); CHLORIDE 105 mmol/L (98-107); CREATININE 1.02 mg/dL (0.70-1.30); POTASSIUM 4.4 mmol/L (3.5-5.1); SGOT/AST 30 IU/L (3-35); SGPT/ALT 33 U/L (12-78); SODIUM 139 mmol/L (136-145); TOTAL PROTEIN 7.5 gm/dL (6.4-8.2)
[2021-10-28 20:10] LABS: BILIRUBIN Negative (Negative); BLOOD Negative (Negative); CLARITY Clear (Clear); COLOR Yellow (Yellow); GLUCOSE Negative (Negative); KETONE Trace (Negative); LEUKO ESTERASE Negative (Negative); NITRITE Negative (Negative); SPECIFIC GRAVITY 1.025 (1.001-1.030)
== END 2021-10-28 21:12 | disposition home or self-care (01) ==
LOC: ED 18:48
PROVIDERS: Emergency Medicine
DX: T67.5XXA Heat exhaustion, unspecified, initial encounter (principal); E86.0 Dehydration; R53.1 Weakness; I10 Essential (primary) hypertension; Z88.8 Allergy status to other drugs, medicaments and biological substances; Z79.899 Other long term (current) drug therapy; Z90.89 Acquired absence of other organs; X30.XXXA Exposure to excessive natural heat, initial encounter; Y93.89 Activity, other specified; Y92.89 Other specified places as the place of occurrence of the external cause; Y99.8 Other external cause status

== ENCOUNTER → 2024-04-13 | Emergency (ER) | payer BC, OTHER | LOC: ED 13:37 | DX: Z76.0 Encounter for issue of repeat prescription (principal); Z88.8 Allergy status to other drugs, medicaments and biological substances; Z53.21 Procedure and treatment not carried out due to patient leaving prior to being seen by health care provider ==

== ENCOUNTER → 2024-07-14 | Outpatient (CLI) | payer OTHER ==
[2024-07-14 11:23] LABS: BASO % 0.6 % (0.0-1.0); EOS # 0.2 10*3/uL (0.0-0.4); EOS % 3.8 % (1.0-4.0); HEMATOCRIT 41.9 % (42.0-52.0); MEAN CELL VOLUME 89.7 fl (80.0-94.0); MEAN CORPUSCULAR HGB 30.2 pg (27.0-31.0); MEAN CORPUSCULAR HGB CONC 33.7 g/dl (33.0-37.0); MEAN PLATELET VOLUME 10.6 fl (9.6-12.3); MONO # 0.4 10*3/uL (0.1-1.0); MONO % 9.1 % (3.0-9.0); NEUT # 2.2 10*3/uL (2.3-7.9); NEUT % 46.2 % (47.0-73.0); PLATELET COUNT AUTOMATED 231 10*3/uL (130-400); RED BLOOD COUNT 4.67 10*6/uL (4.50-5.90); RED CELL DISTRI WIDTH 12.7 % (0-14.5); WHITE BLOOD COUNT 4.7 10*3/uL (4.8-10.8)
[2024-07-14 11:51] LABS: ALKALINE PHOSPHATASE 67 U/L (46-116); BUN 11 mg/dl (9-23); CHLORIDE 105 mmol/L (98-107); CHOLESTEROL 170 mg/dL (<200); LDL CHOLESTEROL 100 mg/dL (9-159); SGPT/ALT 25 U/L (5-49); TOTAL PROTEIN 6.8 gm/dL (6.0-8.0); TRIGLYCERIDES 159 mg/dl (<150)
[2024-07-14 11:52] LABS: POTASSIUM 4.2 mmol/L (3.4-5.1)
== END | disposition home or self-care (01) ==
LOC: LAB 10:59
PROVIDERS: ATTEND Student in an Organized Health Care Education/Training Program
DX: I10 Essential (primary) hypertension (principal); E78.00 Pure hypercholesterolemia, unspecified